=== PATIENT | female | born 1980 | race Caucasian/White ===

== ENCOUNTER 2023-01-13 09:35 | Day surgery (SDC) | payer OTHER ==
[~2023-01-13] VITALS: Ht 149.9 cm; Wt 54.4 kg
[~2023-01-13 09:35] MED LIST: TYLENOL-CODEINE1 TAB PO
[2023-01-13] MEDS ORDERED: TRAM1TAB98 PO (22:35)
[2023-01-13] MEDS ORDERED: IBU600 MG PO (22:36)
== END 2023-01-14 02:15 | disposition home or self-care (01) ==
LOC: CIR.AMB 09:35
PROVIDERS: ATTEND Obstetrics & Gynecology
DX: Z30.2 Encounter for sterilization (principal); N83.8 Other noninflammatory disorders of ovary, fallopian tube and broad ligament; Z30.432 Encounter for removal of intrauterine contraceptive device; Z20.822 Contact with and (suspected) exposure to COVID-19